=== PATIENT | female | born 1975 | race Caucasian/White ===

== ENCOUNTER 2019-03-10 05:45 | Emergency (ER) | payer SELFPAY ==
[2019-03-10] MEDS ORDERED: Morphine 2 MG/ML Syringe IVPUSH ONE (06:14)
[2019-03-10] MEDS ORDERED: Sodium Chloride 0.9% 1,000 ML IV ONE (06:14)
[2019-03-10] MEDS ORDERED: Sodium Chloride 0.9% 2.5 ML Syringe FLUSH PRN (06:14)
[2019-03-10] MEDS ORDERED: Ondansetron 4 MG/2 ML SDV IVPUSH ONE (06:14)
[2019-03-10] MEDS ORDERED: Ketorolac 30 MG/ML SDV IVPUSH ONE (06:14)
[2019-03-10] MEDS ORDERED: Sodium Chloride 0.9% 10 ML Syringe FLUSH PRN (06:14)
--- NOTE | 2019-03-10 06:18 | EDM.PDOC ---
<Violeta Montoya - Last Filed: 03/10/19 06:32> ED HPI GENERAL MEDICAL PROBLEM - General Chief Complaint: Abdominal Pain Stated Complaint: STOMACH HURTS Time Seen by Provider: 03/10/19 06:10 - History of Present Illness INITIAL COMMENTS - FREE TEXT/NARRATIVE: HISTORY AND PHYSICAL: History of present illness: The patient is a 43-year-old female who presents with a 2 day history of left upper quadrant pain that she says she has had constantly but it seemed to have gotten worse throughout the night tonight and she was unable to sleep due to the discomfort. She's had no fever chills nausea vomiting and she's had no diarrhea but she has not had regular bowel movements. She has no history of GI surgeries that she admits to and no GI problems and has no urinary complaints. She has taken Advil for the pain and she says she could not sleep all night so she thought she should get it checked out. She told me that she had a bilateral tubal ligation but he took she told the nurse that she has had no surgeries. She did not take any medication specifically this morning for the pain and has had no fevers or flank pain and no chest pain shortness of breath or upper respiratory symptoms. Review of systems: As per history of present illness and below otherwise all systems reviewed and negative. Past medical history: As per history of present illness and as reviewed below otherwise noncontributory. Surgical history: As per history of present illness and as reviewed below otherwise noncontributory. Social history: No reported history of drug or alcohol abuse. Family history: As per history of present illness and as reviewed below otherwise noncontributory. Physical exam: General: Well-developed well-nourished mildly overweight female who is nontoxic and vital signs are noted by me. HEENT: Atraumatic, normocephalic, negative for conjunctival pallor or scleral icterus, mucous membranes moist, throat clear, neck supple, nontender, trachea midline. Lungs: Clear to auscultation, breath sounds equal bilaterally, chest nontender. Heart: S1S2, regular ate and rhythm no overt murmurs Abdomen: Soft, nondistended, bowel sounds are hypoactive but there is no tympany on percussion. There is tenderness on deep palpation in the left upper quadrant without rebound or guarding and the remainder the abdomen has no tenderness. Negative for masses or hepatosplenomegaly. Negative for costovertebral tenderness. Pelvis: Stable nontender. Genitourinary: Deferred. Rectal: Deferred. Extremities: Atraumatic, negative for cords or calf pain. Neurovascular unremarkable. Neuro: Awake, alert, oriented. Cranial nerves II through XII unremarkable. Cerebellum unremarkable. Motor and sensory unremarkable throughout. Exam nonfocal. Diagnostics: CBC CMP amylase lipase UA with reflex UCG CT scan of the abdomen and pelvis Therapeutics: IV, IV fluids, Toradol morphine Zofran [id number]: Case endorsed to Dr Faith to follow up testing and disposition patient with these results. Impression: Left upper quadrant pain Definitive disposition and diagnosis as appropriate pending reevaluation and review of above. luq Pain Score (Numeric/FACES): 10 - Related Data Allergies Allergy/AdvReac Type Severity Reaction Status Date / Time No Known Allergies Allergy Verified 03/10/19 05:59 Home Meds: Home Meds . [No Known Home Meds] 03/10/19 [History] Past Medical History - Past Health History Medical/Surgical History: Denies Medical/Surgical History Social & Family History - Family History Family Medical History: Noncontributory - Tobacco Use Smoking Status *Q: Never Smoker - Recreational Drug Use Recreational Drug Use: No ED ROS GENERAL - Review of Systems Review Of Systems: ROS reveals no pertinent complaints other than HPI. ED EXAM, GENERAL - Physical Exam Exam: See Below (See dictation) Course - Vital Signs Last Recorded V/S: Last Vital Signs Temp 95.2 F L 03/10/19 05:57 Pulse 75 03/10/19 06:38 Resp 16 03/10/19 06:38 BP 162/91 H 03/10/19 06:38 Pulse Ox 99 03/10/19 06:38 - Orders/Labs/Meds Orders: Active Orders 24 hr Category Date Time Status Sodium Chloride 0.9% [Saline Flush] Med 03/10/19 06:14 Active 10 ml FLUSH ASDIRECTED PRN Sodium Chloride 0.9% [Saline Flush] Med 03/10/19 06:14 Active 2.5 ml FLUSH ASDIRECTED PRN Saline Lock Insert [OM.PC] Stat Oth 03/10/19 06:14 Ordered Medication Orders Sodium Chloride (Saline Flush) 10 ml FLUSH ASDIRECTED PRN PRN Reason: Keep Vein Open Last Admin: 03/10/19 06:36 Dose: 10 ml Sodium Chloride (Saline Flush) 2.5 ml FLUSH ASDIRECTED PRN PRN Reason: Keep Vein Open Last Admin: 03/10/19 06:36 Dose: 2.5 ml Labs: Laboratory Tests 03/10/19 03/10/19 03/10/19 Range/Units 05:50 05:50 06:10 WBC 6.59 (4.0-11.0) K/uL RBC 3.88 L (4.30-5.90) M/uL Hgb 9.4 L (12.0-16.0) g/dL Hct 30.3 L (36.0-46.0) % MCV 78.1 L (80.0-98.0) fL MCH 24.2 L (27.0-32.0) pg MCHC 31.0 (31.0-37.0) g/dL RDW Std Deviation 45.9 (28.0-62.0) fl RDW Coeff of Fuad 16 H (11.0-15.0) % Plt Count 391 (150-400) K/uL MPV 9.60 (7.40-12.00) fL Neut % (Auto) 64.1 (48.0-80.0) % Lymph % (Auto) 26.6 (16.0-40.0) % [place] % (Auto) 6.8 (0.0-15.0) % Eos % (Auto) 2.3 (0.0-7.0) % Baso % (Auto) 0.2 (0.0-1.5) % Neut # (Auto) 4.2 (1.4-5.7) K/uL Lymph # (Auto) 1.8 (0.6-2.4) K/uL [place] # (Auto) 0.5 (0.0-0.8) K/uL Eos # (Auto) 0.2 (0.0-0.7) K/uL Baso # (Auto) 0.0 (0.0-0.1) K/uL Nucleated RBC % 0.0 /100WBC Nucleated RBCs # 0 K/uL Sodium (136-145) mmol/L Potassium (3.5-5.1) mmol/L Chloride (98-107) mmol/L Carbon Dioxide (21.0-32.0) mmol/L BUN (7.0-18.0) mg/dL Creatinine (0.6-1.0) mg/dL Est Cr Clr Drug Dosing mL/min Estimated GFR (MDRD) ml/min Glucose (74-106) mg/dL Calcium (8.5-10.1) mg/dL Total Bilirubin (0.2-1.0) mg/dL AST (15-37) IU/L ALT (14-63) IU/L Alkaline Phosphatase (46-116) U/L Total Protein (6.4-8.2) g/dL Albumin (3.4-5.0) g/dL Globulin (2.6-4.0) g/dL Albumin/Globulin Ratio (0.9-1.6) Amylase (25-115) U/L Lipase (73-393) U/L Urine Color YELLOW Urine Appearance CLEAR Urine pH 7.0 (5.0-8.0) Ur Specific [place] <= 1.005 (1.001-1.035) Urine Protein NEGATIVE (NEGATIVE) mg/dL Urine Glucose (UA) NEGATIVE (NEGATIVE) mg/dL Urine Ketones NEGATIVE (NEGATIVE) mg/dL Urine Occult Blood NEGATIVE (NEGATIVE) Urine Nitrite NEGATIVE (NEGATIVE) Urine Bilirubin NEGATIVE (NEGATIVE) Urine Urobilinogen 0.2 (<2.0) EU/dL Ur Leukocyte Esterase NEGATIVE (NEGATIVE) Urine HCG, Qual NEGATIVE (NEGATIVE) 03/10/19 Range/Units 06:10 WBC (4.0-11.0) K/uL RBC (4.30-5.90) M/uL Hgb (12.0-16.0) g/dL Hct (36.0-46.0) % MCV (80.0-98.0) fL MCH (27.0-32.0) pg MCHC (31.0-37.0) g/dL RDW Std Deviation (28.0-62.0) fl RDW Coeff of Fuad (11.0-15.0) % Plt Count (150-400) K/uL MPV (7.40-12.00) fL Neut % (Auto) (48.0-80.0) % Lymph % (Auto) (16.0-40.0) % [place] % (Auto) (0.0-15.0) % Eos % (Auto) (0.0-7.0) % Baso % (Auto) (0.0-1.5) % Neut # (Auto) (1.4-5.7) K/uL Lymph # (Auto) (0.6-2.4) K/uL [place] # (Auto) (0.0-0.8) K/uL Eos # (Auto) (0.0-0.7) K/uL Baso # (Auto) (0.0-0.1) K/uL Nucleated RBC % /100WBC Nucleated RBCs # K/uL Sodium 139 (136-145) mmol/L Potassium 4.1 (3.5-5.1) mmol/L Chloride 106 (98-107) mmol/L Carbon Dioxide 24.5 (21.0-32.0) mmol/L BUN 16 (7.0-18.0) mg/dL Creatinine 0.9 (0.6-1.0) mg/dL Est Cr Clr Drug Dosing 72.53 mL/min Estimated GFR (MDRD) > 60.0 ml/min Glucose 109 H (74-106) mg/dL Calcium 9.2 (8.5-10.1) mg/dL Total Bilirubin 0.2 (0.2-1.0) mg/dL AST 17 (15-37) IU/L ALT 22 (14-63) IU/L Alkaline Phosphatase 62 (46-116) U/L Total Protein 7.0 (6.4-8.2) g/dL Albumin 3.1 L (3.4-5.0) g/dL Globulin 3.9 (2.6-4.0) g/dL Albumin/Globulin Ratio 0.8 L (0.9-1.6) Amylase 41 (25-115) U/L Lipase 130 (73-393) U/L Urine Color Urine Appearance Urine pH (5.0-8.0) Ur Specific [place] (1.001-1.035) Urine Protein (NEGATIVE) mg/dL Urine Glucose (UA) (NEGATIVE) mg/dL Urine Ketones (NEGATIVE) mg/dL Urine Occult Blood (NEGATIVE) Urine Nitrite (NEGATIVE) Urine Bilirubin (NEGATIVE) Urine Urobilinogen (<2.0) EU/dL Ur Leukocyte Esterase (NEGATIVE) Urine HCG, Qual (NEGATIVE) Meds: Medications Generic Name Dose Route Start Last Admin Trade Name Chidi PRN Reason Stop Dose Admin Sodium Chloride 10 ml 03/10/19 06:14 03/10/19 06:36 Saline Flush FLUSH 10 ml ASDIRECTED PRN Administration Keep Vein Open Sodium Chloride 2.5 ml 03/10/19 06:14 03/10/19 06:36 Saline Flush FLUSH 2.5 ml ASDIRECTED PRN Administration Keep Vein Open Discontinued Medications Generic Name Dose Route Start Last Admin Trade Name Freq PRN Reason Stop Dose Admin Sodium Chloride 1,000 mls @ 999 mls/hr 03/10/19 06:14 03/10/19 06:33 Normal Saline IV 03/10/19 07:14 999 mls/hr STAT ONE Administration Iopamidol 100 ml 03/10/19 06:55 03/10/19 06:56 Isovue Multipack-370 (76%) IVPUSH 03/10/19 06:56 100 ml ONETIME ONE Administration Ketorolac Tromethamine 30 mg 03/10/19 06:14 03/10/19 06:34 Toradol IVPUSH 03/10/19 06:15 30 mg ONETIME ONE Administration Morphine Sulfate 2 mg 03/10/19 06:14 03/10/19 06:35 Morphine IVPUSH 03/10/19 06:15 2 mg ONETIME ONE Administration Ondansetron HCl 4 mg 03/10/19 06:14 03/10/19 06:34 Zofran IVPUSH 03/10/19 06:15 4 mg ONETIME ONE Administration Departure - Departure Disposition: Home, Self-Care 01 Condition: Good Clinical Impression: Abdominal pain Qualifiers: Abdominal location: left upper quadrant Qualified Code(s): R10.12 - Left upper quadrant pain - Discharge Information Referrals: PCP,None [Primary Care Provider] - Forms: ED Department Discharge Additional Instructions: The following information is given to patients seen in the emergency department who are being discharged to home. This information is to outline your options for follow-up care. We provide all patients seen in our emergency department with a follow-up referral. The need for follow-up, as well as the timing and circumstances, are variable depending upon the specifics of your emergency department visit. If you don't have a primary care physician on staff, we will provide you with a referral. We always advise you to contact your personal physician following an emergency department visit to inform them of the circumstance of the visit and for follow-up with them and/or the need for any referrals to a consulting specialist. The emergency department will also refer you to a specialist when appropriate. This referral assures that you have the opportunity for follow-up care with a specialist. All of these measure are taken in an effort to provide you with optimal care, which includes your follow-up. Under all circumstances we always encourage you to contact your private physician who remains a resource for coordinating your care. When calling for follow-up care, please make the office aware that this follow-up is from your recent emergency room visit. If for any reason you are refused follow-up, please contact the [facility] Emergency Department at and asked to speak to the emergency department charge nurse. [facility] [address] [place] [address] <Rashmi Faith - Last Filed: 03/10/19 07:29> ED HPI GENERAL MEDICAL PROBLEM - History of Present Illness INITIAL COMMENTS - FREE TEXT/NARRATIVE: Patient was signed out to me from Dr. Montoya to check results a CT scan when completed. CT is normal patient is being discharged stable and told to follow- up with her primary care as needed. Departure - Departure Time of Disposition: 07:28 - Discharge Information *PRESCRIPTION DRUG MONITORING PROGRAM REVIEWED*: Not Applicable *COPY OF PRESCRIPTION DRUG MONITORING REPORT IN PATIENT FABY: Not Applicable
[2019-03-10 06:40] LABS: BLOOD UREA NITROGEN,BUN 16 mg/dL (7.0-18.0); CARBON DIOXIDE,CO2 24.5 mmol/L (21.0-32.0); CHLORIDE,CL 106 mmol/L (98-107); GLUCOSE RANDOM 109 mg/dL (74-106); POTASSIUM,K 4.1 mmol/L (3.5-5.1); SODIUM,NA 139 mmol/L (136-145)
[2019-03-10 06:41] LABS: LIPASE 130 U/L (73-393)
[2019-03-10] MEDS ORDERED: Iopamidol 755 MG/ML 500 ML Multipack Bottle IVPUSH ONE (06:55)
--- NOTE | 2019-03-10 07:23 | CT ---
INDICATION: Left lower quadrant abdominal pain for the last 1 month. COMPARISON: None. TECHNIQUE: CT abdomen and pelvis with intravenous contrast; coronal and sagittal reformats. FINDINGS: No abnormal intra pulmonary nodular densities through the lung bases. No evidence of pleural effusion. Normal size cardiac silhouette without any evidence of pericardial effusion. No focal hepatic or splenic pathology. No pancreatic pathology. Gallbladder is unremarkable. No adrenal pathology. No kidney stones or obstructive uropathy. No retroperitoneal lymphadenopathy. No evidence of abdominal or pelvic ascites. Normal appendix. CT study of the pelvis is unremarkable. Cause for the patient`s left lower quadrant abdominal pain is not evident on the CT study. IMPRESSION: Negative CT abdomen and pelvis with intravenous contrast. Please note that all CT scans at this facility use dose modulation, iterative reconstruction, and/or weight-based dosing when appropriate to reduce radiation dose to as low as reasonably achievable. Dictated by Yenifer Castellano MD @ Mar 10 2019 7:18AM Signed by Dr. Yenifer Castellano @ Mar 10 2019 7:21AM
== END 2019-03-10 07:37 | disposition home or self-care (01) ==
LOC: MW.ED 05:45
DX: R10.12 Left upper quadrant pain (principal); Z98.51 Tubal ligation status
CPT/HCPCS: 74177; 80053; 81003; 81025; 82150; 83690; 85025; 96361; 96374; 96375; 99284; J1885; J2270; J2405; J7040; Q9967; 99283

== ENCOUNTER 2021-08-27 19:07 | Observation (INO) | payer SELFPAY ==
[2021-08-27] MEDS ORDERED: fentaNYL 50 MCG/ML SDV IVPUSH ONE ×2 (19:32→22:18)
[2021-08-27] MEDS ORDERED: Ondansetron 4 MG/2 ML SDV IVPUSH ONE (19:39)
[2021-08-27 20:00] LABS: BLOOD UREA NITROGEN,BUN 13 mg/dL (7.0-18.0); CHLORIDE,CL 100 mmol/L (98-107); GLUCOSE RANDOM 123 mg/dL (74-106); LIPASE 56 U/L (73-393); POTASSIUM,K 4.1 mmol/L (3.5-5.1); SODIUM,NA 139 mmol/L (136-145)
[2021-08-27 20:26] LABS: CORONAVIRUS COVID-19 NAA NEGATIVE (NEGATIVE); INFLUENZA A NAA NEGATIVE (NEGATIVE); INFLUENZA B NAA NEGATIVE (NEGATIVE)
[2021-08-27] MEDS ORDERED: Iopamidol 755 MG/ML 500 ML Multipack Bottle IVPUSH ONE (21:11)
[2021-08-27] MEDS ORDERED: cefTRIAXone 1 GM in Sodium Chloride 0.9% 50 ML IV ONE (21:48)
[2021-08-27] MEDS ORDERED: metroNIDAZOLE/Normal Saline 500 MG in Premix Bag 1 BAG IV ONE (21:48)
[2021-08-27] MEDS ORDERED: HYDROmorphone 2 MG/ML Syringe IVPUSH PRN (22:54)
[2021-08-27] MEDS ORDERED: Lactated Ringers 1,000 ML IV SCH (23:00)
[2021-08-28] MEDS: Piperacillin/Tazobactam 3.375 GM in Sodium Chloride 0.9% 50 ML IV SCH ×4 (01:12→17:22)
[2021-08-28] MEDS: Ondansetron 4 MG/2 ML SDV IVPUSH SCH ×4 (01:12→17:20)
[2021-08-28] MEDS: Acetaminophen/HYDROcodone 325-5 MG Tab PO PRN ×2 (08:05→17:26)
[2021-08-28] MEDS ORDERED: Albuterol 0.083% 2.5 MG/3 ML Neb Soln NEB PRN (10:42)
[2021-08-28] MEDS ORDERED: Metoclopramide 10 MG/2 ML SDV IVPUSH PRN (10:42)
[2021-08-28] MEDS ORDERED: Naloxone 0.4 MG/ML SDV IVPUSH PRN (10:42)
[2021-08-28] MEDS ORDERED: Morphine 4 MG/ML VIAL IVPUSH PRN (10:42)
[2021-08-28] MEDS ORDERED: HYDROmorphone 1 MG/ML Syringe IVPUSH PRN (10:42)
[2021-08-28] MEDS ORDERED: Ondansetron 4 MG/2 ML SDV IVPUSH PRN (10:42)
[2021-08-28] MEDS ORDERED: fentaNYL 100 MCG/2 ML SDV IVPUSH PRN (10:42)
[2021-08-28] MEDS ORDERED: Sugammadex Sodium 200 MG/2 ML VIAL ONE (10:59)
[2021-08-28] MEDS ORDERED: Rocuronium Bromide 50 MG/5 ML Syringe ONE (10:59)
[2021-08-28] MEDS ORDERED: Propofol 200 MG/20 ML SDV ONE (10:59)
[2021-08-28] MEDS ORDERED: fentaNYL 100 MCG/2 ML SDV ONE (10:59)
[2021-08-28] MEDS ORDERED: Ondansetron 4 MG/2 ML SDV ONE (10:59)
[2021-08-28] MEDS ORDERED: Lidocaine 2% 5 ML SDV ONE (10:59)
[2021-08-28] MEDS ORDERED: Midazolam 1 MG/ML 2 ML SDV ONE (11:00)
[2021-08-28] MEDS ORDERED: Octyl 2-Cyanoacrylate 1 Tube ONE (12:29)
[2021-08-28] MEDS ORDERED: Dexamethasone 4 MG/ML 5 ML MDV ONE (12:29)
[2021-08-28] MEDS ORDERED: Bupivacaine 0.5% 10 ML SDV ONE (12:29)
[2021-08-28] MEDS ORDERED: ePHEDrine 50 MG/ML SDV ONE (13:23)
[2021-08-28] MEDS ORDERED: Lactated Ringers 1,000 ML IV SCH (14:15)
== END 2021-08-28 18:45 | disposition home or self-care (01) ==
LOC: MW.ED 19:07 → MW.MS 22:44
PROVIDERS: ADMIT Surgery; ATTEND Surgery
DX: K35.33 Acute appendicitis with perforation, localized peritonitis, and gangrene, with abscess (principal); Z98.51 Tubal ligation status; Z20.822 Contact with and (suspected) exposure to COVID-19
CPT/HCPCS: 0240U; 36415; 44970; 74177; 76705; 80053; 81001; 81025; 83605; 83690; 85025; 85610; 87040; 87086; 96365; 96367; 96375; 96376; 99285; A9270; J0131; J0696; J1100; J2250; J2405; J2543; J2704; J3010; J3490; J7030; J7120; Q9967; 00840; 99284